=== PATIENT | female | born 1945 | race African-American/Black ===

== ENCOUNTER 2017-08-18 10:14 | Emergency (ER) | payer OTHER, MEDICAID ==
[~2017-08-18] VITALS: Ht 149.9 cm; Wt 68.0 kg
[2017-08-18 10:46] VITALS: BP 149/70
[2017-08-18] MEDS ORDERED: ONDANSETRON HCL 4 MG/2 ML VIAL IM ONE (11:00)
[2017-08-18] MEDS ORDERED: MORPHINE SULF INJ 2 MG/ML SYRINGE 1ML IM ONE (11:00)
== END 2017-08-18 11:17 | disposition home or self-care (01) ==
LOC: ER 10:14
DX: G89.29 Other chronic pain (principal); M54.5 Low back pain; Z91.040 Latex allergy status; Z91.09 Other allergy status, other than to drugs and biological substances; Z96.89 Presence of other specified functional implants
CPT/HCPCS: 93005; 96372; 99284; J2270; J2405

== ENCOUNTER 2018-10-31 12:29 | Emergency (ER) | payer OTHER, MEDICAID ==
[~2018-10-31] VITALS: Ht 152.4 cm; Wt 69.4 kg
[2018-10-31 12:55] VITALS: BP 139/59
[2018-10-31] MEDS ORDERED: KETOROLAC TROMETH 60MG/2ML VIAL IM ONE (13:30)
== END 2018-10-31 14:06 | disposition home or self-care (01) ==
LOC: ER 12:32
DX: M54.5 Low back pain (principal); G89.29 Other chronic pain; E78.5 Hyperlipidemia, unspecified; I10 Essential (primary) hypertension; Z88.5 Allergy status to narcotic agent; Z88.2 Allergy status to sulfonamides; Z91.040 Latex allergy status
CPT/HCPCS: 93005; 96372; 99283; J1885

== ENCOUNTER 2025-06-28 09:41 | Outpatient (CLI) | payer OTHER, MEDICAID ==
--- NOTE | 2025-06-29 13:37 | DVHSR ---
APPROVED REPORT EXAM: Two-dimensional and M-mode echocardiogram with Doppler and color Doppler. Surgery/Intervention Pacemaker: DIMENSIONS LVDd3.6 (3.8-5.7cm)LA (2D)3.5 (1.9-4.0cm)Aortic Root2.7 (2.0-3.7cm) LVDs2.4 (2.5-4.0cm)LA (MM) (1.9-4.0cm)Aortic Cusp Exc1.4 (1.5-2.0cm) EF (%) 60.0 (55-70%)Rt. Atrium3.3 (1.9-4.0cm)Asc. Aorta cm IVSd1.1 (0.7-1.1cm)RV (D)3.0 (1.8-2.4cm) PWd1.0 (0.7-1.1cm) Mitral Valve MitralMitral Stenosis E wave0.59m/sMV Mean GR.mmHg A wave0.93m/sMV Peak GR.mmHg E/A ratio0.62D MVAcm2 DECEL [id number] 1/2 [place] Aortic Valve Aortic ValveAortic Stenosis V10.95m/Marlen Mean GR.3mmHg V21.27m/Marlen Peak GR.6mmHg LVOT Diameter1.9 (1.8-2.4cm)Doppler AVA2.12cm2 Pulmonic Valve V20.81m/s Tricuspid Valve TR Velocity3.17m/s [id number] LEFT VENTRICLE The left ventricle is normal size. The left ventricle is normal in structure and function. The Ejection Fraction is within normal limits. RIGHT VENTRICLE The right ventricle is normal size. There is a pacemaker lead in the right ventricle. ATRIA The left atrial size is normal. The right atrium size is normal. A pacemaker is seen in the right atrium. The interatrial septum is intact with no evidence for an atrial septal defect. MITRAL VALVE The mitral valve is normal in structure. There is no mitral valve regurgitation noted. PULMONIC VALVE The pulmonic valve is not well visualized. There is trace pulmonic valvular regurgitation. TRICUSPID VALVE The tricuspid valve is grossly normal. There is mild tricuspid regurgitation. Right ventricular systolic pressure is 40-50 mmHg. AORTIC VALVE The aortic valve opens well. The aortic valve is mildly sclerotic. No aortic regurgitation is present. GREAT VESSELS The aortic root is normal size. PERICARDIAL EFFUSION There is no pericardial effusion. Other Information Technically limited study due to body habitus. Conclusion MILD PAH EF >55% MILD TR MILD AV SCLEROSIS
== END 2025-06-28 17:00 | disposition home or self-care (01) ==
LOC: Rad HDHVI 09:41
PROVIDERS: ATTEND Internal Medicine Cardiovascular Disease
DX: I08.2 Rheumatic disorders of both aortic and tricuspid valves (principal); R06.02 Shortness of breath; R42 Dizziness and giddiness
CPT/HCPCS: 93306

== ENCOUNTER 2025-06-30 08:07 | Outpatient (CLI) | payer OTHER, MEDICAID ==
[~2025-06-30] VITALS: Ht 152.4 cm; Wt 63.5 kg
[2025-06-30] MEDS ORDERED: ADENOSINE 90 MG/30 ML INJ IV ONE (08:54)
[2025-06-30] MEDS ORDERED: ADENOSINE 53 MG in GIVE UN-DILUTED 0 ML IV ONE (10:30)
== END 2025-06-30 17:00 | disposition home or self-care (01) ==
LOC: Rad HDHVI 08:07
PROVIDERS: ATTEND Internal Medicine Cardiovascular Disease
DX: I11.0 Hypertensive heart disease with heart failure (principal); I50.9 Heart failure, unspecified; R06.02 Shortness of breath; R42 Dizziness and giddiness; R53.83 Other fatigue; R07.89 Other chest pain; R63.0 Anorexia; E78.00 Pure hypercholesterolemia, unspecified; Z95.0 Presence of cardiac pacemaker
CPT/HCPCS: 78452; 93017; A9500; J0153

== ENCOUNTER 2025-09-20 08:01 | Outpatient (CLI) | payer OTHER, MEDICAID | END 2025-09-20 17:00 | disposition home or self-care (01) | LOC: Rad HDHVI 08:01 | PROVIDERS: ATTEND Internal Medicine Cardiovascular Disease | DX: I07.1 Rheumatic tricuspid insufficiency (principal); R06.02 Shortness of breath | CPT/HCPCS: 93306 ==